=== PATIENT | male | born 1945 | race Caucasian/White ===

== ENCOUNTER 2019-04-07 05:35 | Inpatient (IN) | payer MEDICARE, OTHER ==
[~2019-04-07] VITALS: Ht 175.3 cm; Wt 70.0 kg
[~2019-04-07 05:35] MED LIST: ALBU5SOL6 INH; ATOR20TA86 PO; CALC-112 PO; CIME400T PO; DOXY100T PO; FINA5TAB4 PO; FLUT15.845 NAS; FLUT1AER INH; MONT10TA9 PO; MULT-257 PO; PHEN37.5 PO; PRED10TA PO; TIOT4MIS5 INH
--- NOTE | 2019-04-07 05:42 | NUR ---
pt presents with sob that started at 0400. pt with a hx of copd. pt recieved a breathing treatment en route with [facility] and pt reports he is feeling a lot better.
--- NOTE | 2019-04-07 05:42 | NUR ---
pt attached to all monitors. no acute distress noted.
--- NOTE | 2019-04-07 05:52 | NUR ---
rt at bedside. just arrived. at bedside now.
[2019-04-07] MEDS ORDERED: SODIUM CHLORIDE FLUSH 10ML SYR IVF ONE (06:00)
[2019-04-07] MEDS ORDERED: ALBUTEROL 0.5%, 20ML NPPB SCH (06:00)
[2019-04-07] MEDS ORDERED: MONT10TA9 PO (06:13)
--- NOTE | 2019-04-07 06:13 | NUR ---
lab at bedside to draw blood
--- NOTE | 2019-04-07 06:28 | NUR ---
LAB [facility] BLOOD CULTURES X2
--- NOTE | 2019-04-07 06:32 | NUR ---
pt ambulatory to bedside cammode with one assist.
[2019-04-07 06:43] LABS: BASOPHILS # (AUTO) 0.03 x10^3/uL (0-0.1); BASOPHILS % (AUTO) 0 % (0-1); EOSINOPHILS # (AUTO) 0.39 x10^3/uL (0-0.4); EOSINOPHILS % (AUTO) 4 % (1-7); LYMPHOCYTES # (AUTO) 1.56 x10^3/uL (1-3.4); LYMPHOCYTES % (AUTO) 15 % (22-44); MD NO; MEAN CORPUSCULAR HEMOGLOBIN 35.2 pg (27.5-34.5); MEAN CORPUSCULAR HGB CONC 34.4 g/dL (33.2-36.2); MEAN CORPUSCULAR VOLUME 102.4 fL (81-97); MEAN PLATELET VOLUME 7.4 fL (7.4-10.4); MONOCYTES % (AUTO) 7 % (2-9); NEUTROPHILS # (AUTO) 8.13 x10^3/uL (1.8-6.8); NEUTROPHILS % (AUTO) 75 % (42-75); PLATELET COUNT 220 x10^3/uL (130-400); RED BLOOD COUNT 4.76 x10^6/uL (4.38-5.82); RED CELL DISTRIBUTION WIDTH 14.2 % (9.4-14.8)
--- NOTE | 2019-04-07 06:54 | NUR ---
report given to LYNN beaulieu
[2019-04-07 07:01] LABS: ALBUMIN 3.6 g/dL (3.4-5.0); ANION GAP 8 mmol/L (5-15); CALCIUM 8.8 mg/dL (8.5-10.1); CHLORIDE 107 mmol/L (98-107)
[2019-04-07 07:07] LABS: CREATININE 0.85 mg/dL (0.7-1.3); TROPONIN I < 0.015 ng/mL (0.000-0.045)
[2019-04-07] MEDS ORDERED: PIPERACILLIN/TAZO/PMX 3.375GM 50 ML ONE (07:11)
[2019-04-07] MEDS ORDERED: PIPERACILLIN/TAZO/PMX 3.375GM 50 ML IV ONE (07:30)
--- NOTE | 2019-04-07 07:39 | NUR ---
Provided report to LYNN Cast. All questions answered. Pt ready to transfer to floor from ED.
--- NOTE | 2019-04-07 08:21 | NUR ---
Pt transfered to floor from ED and left with all personal belongings.
[2019-04-07 08:58] VITALS: BP 111/72
[2019-04-07] MEDS ORDERED: ONDANSETRON 2MG/ML, 2ML IVPush PRN (11:00)
[2019-04-07] MEDS: ALBUTEROL/IPRATROPIUM 2.5MG/0.5MG, 3 ML NPPB SCH ×4 (11:00→22:28)
[2019-04-07] MEDS ORDERED: LABETALOL 5MG/ML, 20ML IVPush PRN (11:00)
[2019-04-07] MEDS ORDERED: ACETAMINOPHEN 325 MG TABLET PO PRN (11:00)
[2019-04-07] MEDS ORDERED: ALBUTEROL SULFATE 2.5 MG/3 ML NPPB PRN (11:00)
[2019-04-07] MEDS: GUAIFENESIN 200 MG TABLET PO SCH ×3 (12:29→20:25)
[2019-04-07] MEDS: methylPREDNISolone SOD SUCC 125 MG/2 ML IVPush SCH ×3 (12:29→22:52)
[2019-04-07] MEDS: CEFTRIAXONE PMX 1GM/50ML 50 ML IV SCH (12:29)
[2019-04-07] MEDS: ENOXAPARIN 40 MG/0.4 ML SQ SCH (12:29)
[2019-04-07 13:11] VITALS: BP 99/63
[2019-04-07] MEDS: FLUTICASONE NASAL SPRAY 16GM NAS SCH (15:37)
[2019-04-07] MEDS: AZITHROMYCIN 500 MG in SODIUM CHLORIDE 0.9% 250 ML IV SCH (15:37)
[2019-04-07 19:46] VITALS: BP 101/53
[2019-04-07] MEDS: FINASTERIDE 5 MG TABLET PO SCH (20:25)
[2019-04-07] MEDS: MONTELUKAST 10 MG TABLET PO SCH (20:25)
[2019-04-07] MEDS: ATORVASTATIN 20 MG TABLET PO SCH (20:25)
[2019-04-07] MEDS: BUDESONIDE 0.5 MG/2 ML INHA NPPB SCH (22:28)
[2019-04-08 00:43] VITALS: BP 155/89
[2019-04-08] MEDS: ALBUTEROL/IPRATROPIUM 2.5MG/0.5MG, 3 ML NPPB SCH ×6 (03:54→22:45)
[2019-04-08] MEDS: methylPREDNISolone SOD SUCC 125 MG/2 ML IVPush SCH (04:00)
[2019-04-08 04:36] LABS: ALBUMIN 3.2 g/dL (3.4-5.0); ANION GAP 8 mmol/L (5-15); CALCIUM 8.8 mg/dL (8.5-10.1); CHLORIDE 104 mmol/L (98-107); MEAN CORPUSCULAR HEMOGLOBIN 34.9 pg (27.5-34.5); MEAN CORPUSCULAR HGB CONC 33.2 g/dL (33.2-36.2); MEAN PLATELET VOLUME 7.9 fL (7.4-10.4); PLATELET COUNT 231 x10^3/uL (130-400); RED BLOOD COUNT 4.24 x10^6/uL (4.38-5.82)
[2019-04-08 04:39] LABS: ALANINE AMINOTRANSFERASE 18 U/L (12-78); ALKALINE PHOSPHATASE 66 U/L (45-117); BILIRUBIN,TOTAL 0.4 mg/dL (0.2-1.0); TOTAL PROTEIN 6.5 g/dL (6.4-8.2)
[2019-04-08 06:00] LABS: BASOPHILS # (AUTO) 0.01 x10^3/uL (0-0.1); BASOPHILS % (AUTO) 0 % (0-1); EOSINOPHILS % (AUTO) 0 % (1-7); LYMPHOCYTES # (AUTO) 0.84 x10^3/uL (1-3.4); LYMPHOCYTES % (AUTO) 4 % (22-44); MD SCAN; MONOCYTES # (AUTO) 0.15 x10^3/uL (0.2-0.8); MONOCYTES % (AUTO) 1 % (2-9); NEUTROPHILS # (AUTO) 20.15 x10^3/uL (1.8-6.8); NEUTROPHILS % (AUTO) 95 % (42-75)
[2019-04-08 07:05] VITALS: BP 97/61
[2019-04-08] MEDS: FLUTICASONE NASAL SPRAY 16GM NAS SCH (08:37)
[2019-04-08] MEDS: GUAIFENESIN 200 MG TABLET PO SCH ×4 (08:37→20:11)
[2019-04-08] MEDS: MULTIVITAMIN 1 TABLET PO SCH (08:38)
[2019-04-08] MEDS: BUDESONIDE 0.5 MG/2 ML INHA NPPB SCH ×2 (09:00→19:20)
[2019-04-08 10:44] VITALS: BP 104/63
[2019-04-08] MEDS: ENOXAPARIN 40 MG/0.4 ML SQ SCH (12:00)
[2019-04-08] MEDS: CEFTRIAXONE PMX 1GM/50ML 50 ML IV SCH (12:00)
[2019-04-08] MEDS ORDERED: CIMETIDINE 400 MG TABLET PO SCH (12:30)
[2019-04-08] MEDS: CIMETIDINE 200 MG TABLET PO SCH (13:49)
[2019-04-08 14:00] VITALS: BP 105/64
[2019-04-08] MEDS: AZITHROMYCIN 500 MG in SODIUM CHLORIDE 0.9% 250 ML IV SCH (15:20)
[2019-04-08 19:32] VITALS: BP 119/68
[2019-04-08] MEDS: MONTELUKAST 10 MG TABLET PO SCH (20:11)
[2019-04-08] MEDS: ATORVASTATIN 20 MG TABLET PO SCH (20:11)
[2019-04-08] MEDS: FINASTERIDE 5 MG TABLET PO SCH (20:12)
[2019-04-09 00:41] VITALS: BP 110/65
[2019-04-09 04:41] LABS: MEAN CORPUSCULAR HEMOGLOBIN 35.3 pg (27.5-34.5); MEAN CORPUSCULAR HGB CONC 33.8 g/dL (33.2-36.2); MEAN CORPUSCULAR VOLUME 104.5 fL (81-97); MEAN PLATELET VOLUME 7.7 fL (7.4-10.4); PLATELET COUNT 232 x10^3/uL (130-400); RED BLOOD COUNT 4.19 x10^6/uL (4.38-5.82); RED CELL DISTRIBUTION WIDTH 14.1 % (9.4-14.8)
[2019-04-09] MEDS: ALBUTEROL/IPRATROPIUM 2.5MG/0.5MG, 3 ML NPPB SCH ×5 (06:34→23:50)
[2019-04-09] MEDS: BUDESONIDE 0.5 MG/2 ML INHA NPPB SCH ×2 (06:34→20:03)
[2019-04-09 06:36] LABS: MD YES
[2019-04-09 06:37] LABS: BAND#(MANUAL) 0.28 x10^3/uL; BANDS%(MANUAL) 1 % (0-7); LYMPHS% (MANUAL) 5 % (22-44); MONOS#(MANUAL) 0.56 x10^3/uL (0.3-2.7); MONOS% (MANUAL) 2 % (2-9); SEG#(MANUAL) 25.67 x10^3/uL (1.8-6.8); SEGS% (MANUAL) 92 % (42-75)
[2019-04-09 06:38] LABS: <PLATELET ESTIMATE> ADEQUATE; <PLT MORPHOLOGY> NORMAL PLT MORPH; POLYCHROMASIA 1+
[2019-04-09 08:11] VITALS: BP 123/68
[2019-04-09] MEDS: GUAIFENESIN 200 MG TABLET PO SCH ×4 (09:00→20:45)
[2019-04-09] MEDS: CIMETIDINE 200 MG TABLET PO SCH ×2 (09:00→20:46)
[2019-04-09] MEDS: MULTIVITAMIN 1 TABLET PO SCH (09:00)
[2019-04-09] MEDS: FLUTICASONE NASAL SPRAY 16GM NAS SCH (09:01)
[2019-04-09] MEDS: CEFTRIAXONE PMX 1GM/50ML 50 ML IV SCH (11:31)
[2019-04-09] MEDS: ENOXAPARIN 40 MG/0.4 ML SQ SCH (11:31)
[2019-04-09 15:00] VITALS: BP 133/75
[2019-04-09] MEDS: AZITHROMYCIN 500 MG in SODIUM CHLORIDE 0.9% 250 ML IV SCH (16:00)
[2019-04-09 19:59] VITALS: BP 135/79
[2019-04-09] MEDS: ATORVASTATIN 20 MG TABLET PO SCH (20:45)
[2019-04-09] MEDS: MONTELUKAST 10 MG TABLET PO SCH (20:45)
[2019-04-09] MEDS: FINASTERIDE 5 MG TABLET PO SCH (20:46)
[2019-04-10 01:59] VITALS: BP 118/65
[2019-04-10 05:01] LABS: BASOPHILS # (AUTO) 0.04 x10^3/uL (0-0.1); BASOPHILS % (AUTO) 0 % (0-1); EOSINOPHILS # (AUTO) 0.01 x10^3/uL (0-0.4); EOSINOPHILS % (AUTO) 0 % (1-7); LYMPHOCYTES # (AUTO) 1.57 x10^3/uL (1-3.4); LYMPHOCYTES % (AUTO) 11 % (22-44); MD NO; MEAN CORPUSCULAR HEMOGLOBIN 35.1 pg (27.5-34.5); MEAN CORPUSCULAR HGB CONC 33.4 g/dL (33.2-36.2); MEAN CORPUSCULAR VOLUME 105.1 fL (81-97); MEAN PLATELET VOLUME 7.9 fL (7.4-10.4); MONOCYTES # (AUTO) 1.26 x10^3/uL (0.2-0.8); MONOCYTES % (AUTO) 8 % (2-9); NEUTROPHILS # (AUTO) 12.13 x10^3/uL (1.8-6.8); NEUTROPHILS % (AUTO) 81 % (42-75); PLATELET COUNT 213 x10^3/uL (130-400); RED BLOOD COUNT 4.05 x10^6/uL (4.38-5.82); RED CELL DISTRIBUTION WIDTH 14.4 % (9.4-14.8)
[2019-04-10] MEDS: ALBUTEROL/IPRATROPIUM 2.5MG/0.5MG, 3 ML NPPB SCH ×5 (06:00→23:44)
[2019-04-10 07:39] VITALS: BP 121/69
[2019-04-10] MEDS: BUDESONIDE 0.5 MG/2 ML INHA NPPB SCH ×2 (09:00→20:01)
[2019-04-10] MEDS: GUAIFENESIN 200 MG TABLET PO SCH ×3 (09:51→20:34)
[2019-04-10] MEDS: MULTIVITAMIN 1 TABLET PO SCH (09:51)
[2019-04-10] MEDS: AZITHROMYCIN 500 MG TABLET PO SCH (09:52)
[2019-04-10] MEDS: AMOXICILLIN/CLAV 875-125MG TABLET PO SCH ×2 (09:52→20:34)
[2019-04-10] MEDS: CIMETIDINE 200 MG TABLET PO SCH ×2 (09:53→20:34)
[2019-04-10] MEDS: FLUTICASONE NASAL SPRAY 16GM NAS SCH (09:56)
[2019-04-10] MEDS: ENOXAPARIN 40 MG/0.4 ML SQ SCH (14:22)
[2019-04-10 14:32] VITALS: BP 118/67
[2019-04-10] MEDS: MONTELUKAST 10 MG TABLET PO SCH (20:34)
[2019-04-10] MEDS: ATORVASTATIN 20 MG TABLET PO SCH (20:34)
[2019-04-10] MEDS: FINASTERIDE 5 MG TABLET PO SCH (20:51)
[2019-04-11 00:09] VITALS: BP 120/70
[2019-04-11 00:45] VITALS: BP 111/68
[2019-04-11 06:14] LABS: BASOPHILS # (AUTO) 0.03 x10^3/uL (0-0.1); BASOPHILS % (AUTO) 0 % (0-1); EOSINOPHILS # (AUTO) 0.07 x10^3/uL (0-0.4); EOSINOPHILS % (AUTO) 1 % (1-7); LYMPHOCYTES % (AUTO) 19 % (22-44); MD NO; MEAN CORPUSCULAR HEMOGLOBIN 35.3 pg (27.5-34.5); MEAN CORPUSCULAR VOLUME 103.7 fL (81-97); MEAN PLATELET VOLUME 7.7 fL (7.4-10.4); MONOCYTES # (AUTO) 0.98 x10^3/uL (0.2-0.8); MONOCYTES % (AUTO) 10 % (2-9); NEUTROPHILS # (AUTO) 7.05 x10^3/uL (1.8-6.8); NEUTROPHILS % (AUTO) 70 % (42-75); PLATELET COUNT 210 x10^3/uL (130-400); RED BLOOD COUNT 4.24 x10^6/uL (4.38-5.82); RED CELL DISTRIBUTION WIDTH 14.4 % (9.4-14.8)
[2019-04-11] MEDS: ALBUTEROL/IPRATROPIUM 2.5MG/0.5MG, 3 ML NPPB SCH ×4 (06:50→19:02)
[2019-04-11] MEDS: BUDESONIDE 0.5 MG/2 ML INHA NPPB SCH ×2 (06:50→19:02)
[2019-04-11 07:36] VITALS: BP 97/67
[2019-04-11] MEDS: MULTIVITAMIN 1 TABLET PO SCH (07:40)
[2019-04-11] MEDS: AMOXICILLIN/CLAV 875-125MG TABLET PO SCH ×2 (07:41→21:33)
[2019-04-11] MEDS: AZITHROMYCIN 500 MG TABLET PO SCH (07:41)
[2019-04-11] MEDS: GUAIFENESIN 200 MG TABLET PO SCH ×4 (07:41→21:33)
[2019-04-11] MEDS: CIMETIDINE 200 MG TABLET PO SCH ×2 (07:41→21:34)
[2019-04-11] MEDS: FLUTICASONE NASAL SPRAY 16GM NAS SCH (07:44)
[2019-04-11] MEDS: ENOXAPARIN 40 MG/0.4 ML SQ SCH (11:32)
[2019-04-11 12:32] VITALS: BP 108/69
[2019-04-11] MEDS ORDERED: MAALOX/HYOSCYAMINE/LIDOCAINE 45 ML BTL PO PRN (13:00)
[2019-04-11 19:58] VITALS: BP 128/92
[2019-04-11] MEDS: MONTELUKAST 10 MG TABLET PO SCH (21:33)
[2019-04-11] MEDS: ATORVASTATIN 20 MG TABLET PO SCH (21:33)
[2019-04-11] MEDS: FINASTERIDE 5 MG TABLET PO SCH (21:33)
[2019-04-11 23:53] VITALS: BP 105/66
[2019-04-12] MEDS: GUAIFENESIN 200 MG TABLET PO SCH ×2 (06:12→12:25)
[2019-04-12] MEDS: ALBUTEROL/IPRATROPIUM 2.5MG/0.5MG, 3 ML NPPB SCH ×3 (06:20→14:00)
[2019-04-12] MEDS: BUDESONIDE 0.5 MG/2 ML INHA NPPB SCH (06:20)
[2019-04-12 07:08] VITALS: BP 107/64
[2019-04-12] MEDS: AZITHROMYCIN 500 MG TABLET PO SCH (08:54)
[2019-04-12] MEDS: FLUTICASONE NASAL SPRAY 16GM NAS SCH (08:54)
[2019-04-12] MEDS: MULTIVITAMIN 1 TABLET PO SCH (08:55)
[2019-04-12] MEDS: AMOXICILLIN/CLAV 875-125MG TABLET PO SCH (08:55)
[2019-04-12] MEDS: CIMETIDINE 200 MG TABLET PO SCH (08:55)
[2019-04-12] MEDS ORDERED: GUAI200T37 PO (12:09)
[2019-04-12] MEDS ORDERED: FAMO20TA7 PO (12:09)
[2019-04-12] MEDS ORDERED: PRED10TA PO (12:09)
[2019-04-12] MEDS ORDERED: AZIT500T5 PO (12:09)
[2019-04-12] MEDS ORDERED: Maalox/Hyoscyamine/Lidocaine PO (12:09)
[2019-04-12] MEDS ORDERED: IPRA3AMP30 NPPB (12:09)
[2019-04-12] MEDS ORDERED: AMOX1TAB12 PO (12:09)
[2019-04-12] MEDS: ENOXAPARIN 40 MG/0.4 ML SQ SCH (12:26)
[2019-04-12 12:41] VITALS: BP 111/72
== END 2019-04-12 15:11 | disposition home or self-care (01) | DRG 871 ==
LOC: ED 07:17 → EDIP 07:18 → ED 08:34 → EDIP 08:44 → UNDOADMIN 08:44 → 3NW 08:50 → DCLOUNGE 04-12 14:55
PROVIDERS: ADMIT Hospitalist; ATTEND Hospitalist
DX: A41.9 Sepsis, unspecified organism (principal); J96.21 Acute and chronic respiratory failure with hypoxia; J18.0 Bronchopneumonia, unspecified organism; J43.9 Emphysema, unspecified; N40.0 Benign prostatic hyperplasia without lower urinary tract symptoms; Z87.891 Personal history of nicotine dependence; E78.00 Pure hypercholesterolemia, unspecified; E78.5 Hyperlipidemia, unspecified; K21.9 Gastro-esophageal reflux disease without esophagitis; Z85.51 Personal history of malignant neoplasm of bladder; Z99.81 Dependence on supplemental oxygen
CPT/HCPCS: 36415; 71045; 80048; 80053; 82040; 83605; 83880; 84145; 84484; 85025; 87040; 87070; 87205; 93005; 94640; 96374; G0378; J0456; J0696; J1650; J2543; J7620; J7626; J2930; J7050; J7512

== ENCOUNTER 2019-06-22 18:08 | Inpatient (IN) | payer MEDICARE, OTHER ==
[~2019-06-22] VITALS: Ht 175.3 cm; Wt 73.2 kg
[~2019-06-22 18:08] MED LIST changes: +AMOX1TAB12 PO; +AZIT500T10 PO; +FAMO20TA7 PO; +GUAI200T37 PO; +IPRA3AMP30 NPPB; +Maalox/Hyoscyamine/Lidocaine PO
--- NOTE | 2019-06-22 18:11 | NUR ---
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
[2019-06-22] MEDS ORDERED: FLUT1BLS3 IH (18:22)
--- NOTE | 2019-06-22 18:27 | NUR ---
LAB, CXR & EKG AT BS
[2019-06-22] MEDS ORDERED: ALBUTEROL/IPRATROPIUM 2.5MG/0.5MG, 3 ML NPPB PRN ×2 (18:30→21:30)
--- NOTE | 2019-06-22 18:37 | NUR ---
PT UPRIGHT ON GURNEY AWAKE & MORE COMFORTABLE, RESPONDS APPROP TO STAFF, [place], NO NEEDS AT THIS TIME, CALL LIGHT WITHIN REACH.
[2019-06-22] MEDS ORDERED: CIME200T6 PO (18:47)
[2019-06-22 18:48] LABS: ALANINE AMINOTRANSFERASE 24 U/L (12-78); ALBUMIN 4.1 g/dL (3.4-5.0); ANION GAP 7 mmol/L (5-15); CALCIUM 9.1 mg/dL (8.5-10.1); CHLORIDE 105 mmol/L (98-107); CREATININE 0.81 mg/dL (0.7-1.3)
[2019-06-22 18:50] LABS: ALKALINE PHOSPHATASE 74 U/L (45-117); BILIRUBIN,TOTAL 0.6 mg/dL (0.2-1.0); TOTAL PROTEIN 7.2 g/dL (6.4-8.2)
[2019-06-22 18:54] LABS: BASOPHILS # (AUTO) 0.03 x10^3/uL (0-0.1); BASOPHILS % (AUTO) 0 % (0-1); EOSINOPHILS # (AUTO) 0.69 x10^3/uL (0-0.4); EOSINOPHILS % (AUTO) 7 % (1-7); LYMPHOCYTES # (AUTO) 2.47 x10^3/uL (1-3.4); LYMPHOCYTES % (AUTO) 26 % (22-44); MD NO; MEAN CORPUSCULAR HEMOGLOBIN 35.1 pg (27.5-34.5); MEAN CORPUSCULAR HGB CONC 33.1 g/dL (33.2-36.2); MEAN CORPUSCULAR VOLUME 106.2 fL (81-97); MEAN PLATELET VOLUME 7.7 fL (7.4-10.4); MONOCYTES # (AUTO) 0.91 x10^3/uL (0.2-0.8); MONOCYTES % (AUTO) 10 % (2-9); NEUTROPHILS # (AUTO) 5.54 x10^3/uL (1.8-6.8); NEUTROPHILS % (AUTO) 58 % (42-75); PLATELET COUNT 207 x10^3/uL (130-400); RED BLOOD COUNT 4.86 x10^6/uL (4.38-5.82); RED CELL DISTRIBUTION WIDTH 14.7 % (9.4-14.8)
--- NOTE | 2019-06-22 18:58 | NUR ---
REPORT GIVEN TO JOHN
--- NOTE | 2019-06-22 19:02 | NUR ---
REPORT RECEIVED FROM LYNN CABRAL. ASSUMED CARE OF PT. PT SITTING UPRIGHT ON GURNEY WITH BIPAP. RESPIRATIONS EVEN AND UNLABORED AT THIS TIME. PT DENIES ANY DISCOMFORT. AT BEDSIDE. ALL VITALS STABLE. WILL FOLLOW UP WITH PCP FOR PLAN OF CARE.
--- NOTE | 2019-06-22 19:19 | NUR ---
ATTEMPTED TO TRIAL PT OFF BIPAP. DIFFUSE WHEEZING STILL PRESENT THROUGHOUT. PT STATES HE DOESN'T FEEL LIKE HE CAN BREATHE VERY WELL. STATES "IT STILL FEELS TOO TIGHT TO BREATHE". RESPIRATORY AT BEDSIDE. DR. NICK RE EVALUATING PT
--- NOTE | 2019-06-22 20:21 | NUR ---
PT CONTINUES TO TOLERATE BIPAP WELL. NO SIGNS OF DISTRESS. ALL VITALS STABLE
[2019-06-22] MEDS ORDERED: ONDANSETRON 2MG/ML, 2ML IVPush PRN (21:00)
[2019-06-22] MEDS ORDERED: OXYcodone IR 5MG TABLET PO PRN (21:00)
[2019-06-22] MEDS ORDERED: PROMETHAZINE 25 MG/ML, 1ML IM PRN (21:00)
[2019-06-22] MEDS ORDERED: BISACODYL 10 MG SUPP PR PRN (21:00)
[2019-06-22] MEDS ORDERED: hydrALAzine 20 MG/ML, 1ML IVPush PRN (21:00)
[2019-06-22] MEDS ORDERED: POLYETHYLENE GLYCOL 17 GM PACKET PO PRN (21:00)
[2019-06-22] MEDS ORDERED: ACETAMINOPHEN 325 MG TABLET PO PRN (21:00)
[2019-06-22] MEDS ORDERED: ONDANSETRON ODT 4 MG PO PRN (21:00)
[2019-06-22] MEDS: ENOXAPARIN 40 MG/0.4 ML SQ SCH (21:00)
[2019-06-22] MEDS: GUAIFENESIN 200 MG TABLET PO SCH (21:00)
[2019-06-22] MEDS ORDERED: morphine SULFATE 10 MG/ML, 1ML IVPush PRN (21:00)
[2019-06-22] MEDS ORDERED: DOCUSATE 100 MG CAPSULE PO PRN (21:00)
[2019-06-22] MEDS ORDERED: FAMOTIDINE 20 MG/2 ML IVPush SCH (21:00)
--- NOTE | 2019-06-22 21:09 | NUR ---
REPORT CALLED TO LYNN SPENCE.
[2019-06-22 21:16] LABS: HEMOGLOBIN A1C 5.4 % (4.2-6.3)
[2019-06-22 21:18] LABS: FREE T4 (FREE THYROXINE) 0.87 ng/dL (0.76-1.46)
[2019-06-22] MEDS ORDERED: ONDANSETRON ODT 4 MG ONE (21:26)
[2019-06-22] MEDS: MONTELUKAST 10 MG TABLET PO SCH (21:43)
[2019-06-22] MEDS: FINASTERIDE 5 MG TABLET PO SCH (21:44)
[2019-06-22] MEDS: ATORVASTATIN 20 MG TABLET PO SCH (21:44)
[2019-06-22] MEDS: ALBUTEROL/IPRATROPIUM 2.5MG/0.5MG, 3 ML NPPB SCH (22:50)
[2019-06-22] MEDS: SODIUM CHLORIDE 0.9% 1,000 ML IV SCH (22:56)
[2019-06-22] MEDS: methylPREDNISolone SOD SUCC 125 MG/2 ML IVPush SCH (22:59)
[2019-06-22] MEDS: DOXYCYCLINE 100 MG in DEXTROSE 5% 250 ML IV SCH (22:59)
[2019-06-22 23:24] VITALS: BP 109/73
[2019-06-23] MEDS: ALBUTEROL/IPRATROPIUM 2.5MG/0.5MG, 3 ML NPPB SCH ×6 (03:00→23:00)
[2019-06-23 04:28] LABS: BASOPHILS # (AUTO) 0.01 x10^3/uL (0-0.1); BASOPHILS % (AUTO) 0 % (0-1); EOSINOPHILS % (AUTO) 0 % (1-7); LYMPHOCYTES # (AUTO) 0.39 x10^3/uL (1-3.4); LYMPHOCYTES % (AUTO) 6 % (22-44); MD NO; MEAN CORPUSCULAR HEMOGLOBIN 35.3 pg (27.5-34.5); MEAN CORPUSCULAR HGB CONC 33.4 g/dL (33.2-36.2); MEAN CORPUSCULAR VOLUME 105.7 fL (81-97); MEAN PLATELET VOLUME 7.5 fL (7.4-10.4); MONOCYTES # (AUTO) 0.02 x10^3/uL (0.2-0.8); MONOCYTES % (AUTO) 0 % (2-9); NEUTROPHILS # (AUTO) 5.86 x10^3/uL (1.8-6.8); NEUTROPHILS % (AUTO) 93 % (42-75); PLATELET COUNT 202 x10^3/uL (130-400); RED BLOOD COUNT 4.53 x10^6/uL (4.38-5.82); RED CELL DISTRIBUTION WIDTH 14.6 % (9.4-14.8)
[2019-06-23 04:37] LABS: ALANINE AMINOTRANSFERASE 21 U/L (12-78); ALBUMIN 3.7 g/dL (3.4-5.0); ANION GAP 6 mmol/L (5-15); CALCIUM 8.5 mg/dL (8.5-10.1); CHLORIDE 107 mmol/L (98-107); CHOLESTEROL, TOTAL 153 mg/dL (140-239); CREATININE 0.74 mg/dL (0.7-1.3); TRIGLYCERIDES 29 mg/dL (50-200); VLDL CHOLESTEROL 6 mg/dL (0-25)
[2019-06-23 04:39] LABS: ALKALINE PHOSPHATASE 66 U/L (45-117); BILIRUBIN,TOTAL 0.6 mg/dL (0.2-1.0); CHOL/HDL RATIO 2.2; HDL CHOL % 45 % (26-37); HDL CHOLESTEROL (DIRECT) 69 mg/dL (40-60); LDL CHOLESTEROL,CALCULATED 78 mg/dL (54-169); LDL/HDL RATIO 1.1 (0.5-3.0); TOTAL PROTEIN 6.6 g/dL (6.4-8.2)
[2019-06-23] MEDS: SODIUM CHLORIDE 0.9% 1,000 ML IV SCH (06:21)
[2019-06-23] MEDS: BUDESONIDE 0.5 MG/2 ML INHA NPPB SCH ×2 (07:00→20:11)
[2019-06-23] MEDS: FAMOTIDINE 20 MG TABLET PO SCH ×2 (08:16→21:37)
[2019-06-23] MEDS: MULTIVITAMIN 1 TABLET PO SCH (08:16)
[2019-06-23] MEDS: methylPREDNISolone SOD SUCC 125 MG/2 ML IVPush SCH ×3 (08:16→21:04)
[2019-06-23] MEDS: CALCIUM/VITAMIN D3 250-125 TABLET PO SCH (08:16)
[2019-06-23] MEDS: DOXYCYCLINE 100 MG in DEXTROSE 5% 250 ML IV SCH ×2 (08:16→21:38)
[2019-06-23] MEDS: FLUTICASONE NASAL SPRAY 16GM NAS SCH (08:17)
[2019-06-23] MEDS: GUAIFENESIN 200 MG TABLET PO SCH ×2 (08:17→21:37)
[2019-06-23 10:27] VITALS: BP 129/71
[2019-06-23 12:02] VITALS: BP 119/72
[2019-06-23 19:19] VITALS: BP 123/58
[2019-06-23] MEDS: FINASTERIDE 5 MG TABLET PO SCH (21:37)
[2019-06-23] MEDS: ATORVASTATIN 20 MG TABLET PO SCH (21:37)
[2019-06-23] MEDS: MONTELUKAST 10 MG TABLET PO SCH (21:37)
[2019-06-23] MEDS: ENOXAPARIN 40 MG/0.4 ML SQ SCH (21:38)
[2019-06-24 01:01] VITALS: BP 93/50
[2019-06-24] MEDS: methylPREDNISolone SOD SUCC 125 MG/2 ML IVPush SCH (01:49)
[2019-06-24] MEDS: ALBUTEROL/IPRATROPIUM 2.5MG/0.5MG, 3 ML NPPB SCH ×5 (03:00→18:24)
[2019-06-24 06:34] LABS: MEAN CORPUSCULAR HEMOGLOBIN 35.4 pg (27.5-34.5); MEAN CORPUSCULAR HGB CONC 33.7 g/dL (33.2-36.2); MEAN PLATELET VOLUME 7.6 fL (7.4-10.4); PLATELET COUNT 201 x10^3/uL (130-400); RED BLOOD COUNT 4.16 x10^6/uL (4.38-5.82); RED CELL DISTRIBUTION WIDTH 14.3 % (9.4-14.8)
[2019-06-24 06:42] LABS: ALANINE AMINOTRANSFERASE 21 U/L (12-78); ALBUMIN 3.7 g/dL (3.4-5.0); ANION GAP 6 mmol/L (5-15); CALCIUM 8.6 mg/dL (8.5-10.1); CHLORIDE 107 mmol/L (98-107); CREATININE 0.75 mg/dL (0.7-1.3)
[2019-06-24 06:58] VITALS: BP 135/68
[2019-06-24] MEDS: BUDESONIDE 0.5 MG/2 ML INHA NPPB SCH ×2 (07:01→18:24)
[2019-06-24 07:08] LABS: ALKALINE PHOSPHATASE 58 U/L (45-117); BILIRUBIN,TOTAL 0.4 mg/dL (0.2-1.0); TOTAL PROTEIN 6.4 g/dL (6.4-8.2)
[2019-06-24 07:14] LABS: MD YES
[2019-06-24 07:19] LABS: LYMPH#(MANUAL) 0.35 x10^3/uL (1-3.4); LYMPHS% (MANUAL) 2 % (22-44); MONOS#(MANUAL) 0.18 x10^3/uL (0.3-2.7); MONOS% (MANUAL) 1 % (2-9); SEG#(MANUAL) 17.17 x10^3/uL (1.8-6.8); SEGS% (MANUAL) 97 % (42-75)
[2019-06-24 07:21] LABS: <PLATELET ESTIMATE> ADEQUATE; <PLT MORPHOLOGY> NORMAL PLT MORPH
[2019-06-24] MEDS: LACTOBACILLUS CHEW TABLET PO SCH ×3 (08:47→20:57)
[2019-06-24] MEDS: GUAIFENESIN 200 MG TABLET PO SCH ×2 (08:47→20:58)
[2019-06-24] MEDS: CALCIUM/VITAMIN D3 250-125 TABLET PO SCH (08:48)
[2019-06-24] MEDS: MULTIVITAMIN 1 TABLET PO SCH (08:48)
[2019-06-24] MEDS: FAMOTIDINE 20 MG TABLET PO SCH ×2 (08:48→20:57)
[2019-06-24] MEDS: SODIUM CHLORIDE 0.9% 1,000 ML IV SCH (08:49)
[2019-06-24] MEDS: FLUTICASONE NASAL SPRAY 16GM NAS SCH (09:48)
[2019-06-24 12:48] VITALS: BP 127/70
[2019-06-24] MEDS: FINASTERIDE 5 MG TABLET PO SCH (20:57)
[2019-06-24] MEDS: ENOXAPARIN 40 MG/0.4 ML SQ SCH (20:57)
[2019-06-24] MEDS: MONTELUKAST 10 MG TABLET PO SCH (20:57)
[2019-06-24] MEDS: ATORVASTATIN 20 MG TABLET PO SCH (20:57)
[2019-06-24] MEDS ORDERED: ALBUTEROL/IPRATROPIUM 2.5MG/0.5MG, 3 ML NPPB PRN (23:30)
[2019-06-25 00:42] VITALS: BP 125/73
[2019-06-25] MEDS: SODIUM CHLORIDE 0.9% 1,000 ML IV SCH (01:34)
[2019-06-25 06:16] LABS: ANION GAP 4 mmol/L (5-15); CALCIUM 8.4 mg/dL (8.5-10.1); CHLORIDE 108 mmol/L (98-107)
[2019-06-25 06:17] LABS: CREATININE 0.61 mg/dL (0.7-1.3)
[2019-06-25 06:21] LABS: BASOPHILS % (AUTO) 0 % (0-1); EOSINOPHILS % (AUTO) 0 % (1-7); LYMPHOCYTES % (AUTO) 6 % (22-44); MD NO; MEAN CORPUSCULAR HEMOGLOBIN 35.5 pg (27.5-34.5); MEAN CORPUSCULAR HGB CONC 33.7 g/dL (33.2-36.2); MEAN CORPUSCULAR VOLUME 105.4 fL (81-97); MEAN PLATELET VOLUME 7.6 fL (7.4-10.4); MONOCYTES # (AUTO) 0.79 x10^3/uL (0.2-0.8); MONOCYTES % (AUTO) 6 % (2-9); NEUTROPHILS # (AUTO) 11.46 x10^3/uL (1.8-6.8); NEUTROPHILS % (AUTO) 88 % (42-75); PLATELET COUNT 183 x10^3/uL (130-400); RED BLOOD COUNT 4.05 x10^6/uL (4.38-5.82); RED CELL DISTRIBUTION WIDTH 14.7 % (9.4-14.8)
[2019-06-25] MEDS: ALBUTEROL/IPRATROPIUM 2.5MG/0.5MG, 3 ML NPPB SCH ×2 (07:15→09:49)
[2019-06-25] MEDS: BUDESONIDE 0.5 MG/2 ML INHA NPPB SCH (07:15)
[2019-06-25] MEDS: FAMOTIDINE 20 MG TABLET PO SCH (09:20)
[2019-06-25] MEDS: LACTOBACILLUS CHEW TABLET PO SCH (09:20)
[2019-06-25] MEDS: GUAIFENESIN 200 MG TABLET PO SCH (09:20)
[2019-06-25] MEDS: CALCIUM/VITAMIN D3 250-125 TABLET PO SCH (09:20)
[2019-06-25] MEDS: MULTIVITAMIN 1 TABLET PO SCH (09:20)
[2019-06-25] MEDS: FLUTICASONE NASAL SPRAY 16GM NAS SCH (09:21)
[2019-06-25] MEDS ORDERED: ACID1TAB7 PO (10:22)
[2019-06-25] MEDS ORDERED: GUAI200T37 PO (10:22)
[2019-06-25 10:32] VITALS: BP 114/59
== END 2019-06-25 14:04 | disposition home or self-care (01) | DRG 189 ==
LOC: ED 19:35 → EDIP 19:42 → ED 19:53 → CCU 21:24 → 4EST 06-23 10:19 → DCLOUNGE 06-25 13:47
PROVIDERS: ADMIT Internal Medicine; ATTEND Internal Medicine
PROC: 5A09357 Assistance with Respiratory Ventilation, Less than 24 Consecutive Hours, Continuous Positive Airway Pressure (ICD-10-PCS; principal; 2019-06-22)
DX: J96.22 Acute and chronic respiratory failure with hypercapnia (principal); D75.89 Other specified diseases of blood and blood-forming organs; E78.00 Pure hypercholesterolemia, unspecified; E78.5 Hyperlipidemia, unspecified; J20.9 Acute bronchitis, unspecified; J43.9 Emphysema, unspecified; J96.21 Acute and chronic respiratory failure with hypoxia; K21.9 Gastro-esophageal reflux disease without esophagitis; N40.0 Benign prostatic hyperplasia without lower urinary tract symptoms; Z85.51 Personal history of malignant neoplasm of bladder; Z87.891 Personal history of nicotine dependence; Z99.81 Dependence on supplemental oxygen
CPT/HCPCS: 36415; 36600; 71045; 80048; 80053; 80061; 82607; 82803; 83036; 83735; 84100; 84439; 84443; 85025; 87040; 87070; 87081; 87205; 93005; 94640; 94660; 99291; G0378; J1650; J7060; J7620; J7626; Q0162; J2930; J3490; J7030